=== PATIENT | male | born 1995 | race Caucasian/White ===

== ENCOUNTER 2024-01-09 22:23 | Emergency (ER) | payer BC ==
[2024-01-09 22:32] VITALS: BP 150/87; PULSE 94; RESP 16; TEMP 98.8; BMI 26.4
== END 2024-01-09 23:47 | disposition home or self-care (01) ==
LOC: JER 22:23
DX: R42 Dizziness and giddiness (principal)
CPT/HCPCS: 93005; 93010; 99283-25

== ENCOUNTER 2024-02-15 21:43 | Emergency (ER) | payer BC ==
[2024-02-15 21:51] VITALS: BP 138/98; PULSE 77; RESP 16; TEMP 98.4; BMI 25.8
[2024-02-15] MEDS ORDERED: ACETAMINOPHEN 500 MG TABLET (FP) ONE (22:20)
[2024-02-15] MEDS: ACETAMINOPHEN 500 MG TABLET (FP) PO ONE (22:22)
== END 2024-02-15 22:57 | disposition home or self-care (01) ==
LOC: JER 21:43
DX: R42 Dizziness and giddiness (principal)
CPT/HCPCS: 82962; 93005; 93010; 99284-25